=== PATIENT | female | born 1960 | race Caucasian/White ===

== ENCOUNTER → 2016-11-13 | Day surgery (SDC) | payer OTHER ==
[~2016-11-13] VITALS: Ht 172.7 cm; Wt 104.3 kg
[~2016-11-13] MED LIST: ALBUTEROL0.09 MG/A2 IH; AMITRIPTYLINE25 MG PO; AUGMENTIN 875 M1 TAB PO; BAYER ASPIRIN C81 MG PO; CLARITIN10 MG PO; EFFEXOR XR75 M2 PO; EFFEXOR75 MG PO; FIORICET 325 MG1 TAB PO; Fioricet 325 MG1 TAB PO; INDERAL LA120 MG PO; LEXAPRO10 MG PO; LOMOTIL 0.025 M1 TA1 PO; LOMOTIL 0.025 M1 TAB PO; MELATONIN3 MG PO; MOTRIN 800 MG E4 TAB PO; NORCO 325 MG-7.1 TAB PO; PAXIL10 MG PO; PREDNISONE5 MG PO; PRILOSEC20 M1 PO; PROPRANOLOL HCL10 MG PO; PROTONIX40 MG PO; PROVENTIL0.09 MG/A1 INH; TRAMADOL HCL50 MG PO; TYLENOL W/CODEI1 TA4 PO; ZANTAC 150150 MG PO
--- NOTE | ~2016-11-13 | CON ---
[place], [place] REPORT OF CONSULTATION NAME: [id number] UNIT #: [id number] ROOM: DOCTOR: VELASQUEZ ALVAREZ MD BIRTHDATE: [birth year] DOS: 11/13/2016 PROCEDURES: 1. Esophagogastroduodenoscopy and biopsy. 2. Colonoscopy and biopsy. INDICATIONS: Abdominal pain and chronic diarrhea. An informed consent was obtained from the patient after indication of procedures, the alternatives and potential complications were explained to her. PROCEDURE MEDICATIONS: Sedation was administered by Anesthesiology Department. Scope used for upper endoscopy was Olympus diagnostic adult upper endoscope GIF-180, that insertion was to descending duodenum. With the colonoscopy, the scope used was Olympus pediatric colonoscope variable stiffness GIF-180, that insertion was to the cecum, which was identified by the usual landmarks, the appendiceal orifice, ileocecal valve and triangular fold, in addition to transillumination in the right lower quadrant. FINDINGS: After adequate sedation, the patient was placed in left lateral decubitus position. Upper endoscopy was performed first. The scope was introduced under direct visualization through the upper esophageal sphincter into the esophagus. Esophageal mucosa appeared normal with no ulcerations or strictures. Lower esophageal sphincter was identified at 38 cm from incisors. Stomach was then intubated. Gastric mucosa inspected. Severe gastritis was seen. No discrete ulcers or active bleeding. A MILLICENT test was performed from gastric antrum and body. On retroflexed views of the fundus, no hiatal hernia was seen. Pylorus was intubated easily. The duodenal bulb and descending duodenum were within normal range. Scope was then withdrawn after the stomach was decompressed. We then proceeded with the colonoscopy. Rectal examination showed diminished sphincter tone and no external hemorrhoids. Scope was introduced into the rectum, then advanced to the cecum with slight difficulty to looping the left colon. The prep was adequate. Colon mucosa appeared normal with no evidence of polyps, diverticular ulcerations. Retroflexed views in the rectum showed small internal hemorrhoids. Random biopsies were obtained from the right and left colon to rule out microscopic colitis. The scope was then withdrawn after the rectum was decompressed. The patient tolerated the procedures well. ASSESSMENT: 1. Severe gastritis, MILLICENT test performed. 2. Normal colon mucosa with no polyp seen, random biopsies obtained. 3. Small internal hemorrhoids. PLAN: We will review the histopathology and MILLICENT test results and treat the patient accordingly. Repeat screening colonoscopy advised in 10 years. Office followup will be scheduled in 2-3 weeks. [place], [place] REPORT OF CONSULTATION NAME: LANI MOREL UNIT #: [id number] ROOM: DOCTOR: VELASQUEZ ALVAREZ MD BIRTHDATE: [birth year] VELASQUEZ ALVAREZ MD CM:CONSTR:REPORT OF CONSULTATION 0929 11/19/16 1336 SARA ANDRADE [email or web address]
[2016-11-13 08:40] VITALS: BP 121/88
[2016-11-13 09:25] VITALS: BP 115/57
[2016-11-13 09:40] VITALS: BP 116/63
[2016-11-13 09:55] VITALS: BP 122/70
== END | disposition home or self-care (01) ==
LOC: SDC 11-11 09:30
DX: K52.9 Noninfective gastroenteritis and colitis, unspecified (principal); K64.8 Other hemorrhoids; K29.70 Gastritis, unspecified, without bleeding; F32.9 Major depressive disorder, single episode, unspecified; I10 Essential (primary) hypertension; K21.9 Gastro-esophageal reflux disease without esophagitis; J45.909 Unspecified asthma, uncomplicated; J44.9 Chronic obstructive pulmonary disease, unspecified; F41.9 Anxiety disorder, unspecified; M81.0 Age-related osteoporosis without current pathological fracture; I71.9 Aortic aneurysm of unspecified site, without rupture; I47.1 Supraventricular tachycardia; F17.210 Nicotine dependence, cigarettes, uncomplicated; Z83.3 Family history of diabetes mellitus; Z82.49 Family history of ischemic heart disease and other diseases of the circulatory system

== ENCOUNTER 2017-03-02 15:54 | Emergency (ER) | payer OTHER, MEDICAID ==
[~2017-03-02] VITALS: Wt 104.3 kg
[2017-03-02 16:04] VITALS: BP 128/64
[2017-03-02] MEDS ORDERED: ROBAXIN500 M1 PO (17:44)
[2017-03-02] MEDS ORDERED: ANAPROX DS550 MG PO (17:44)
== END 2017-03-02 17:53 | disposition home or self-care (01) ==
LOC: ED 15:54
DX: S16.1XXA Strain of muscle, fascia and tendon at neck level, initial encounter (principal); S20.212A Contusion of left front wall of thorax, initial encounter; M17.12 Unilateral primary osteoarthritis, left knee; F17.200 Nicotine dependence, unspecified, uncomplicated; Z91.013 Allergy to seafood; Z79.899 Other long term (current) drug therapy; V43.52XA Car driver injured in collision with other type car in traffic accident, initial encounter; Y93.89 Activity, other specified; Y92.413 State road as the place of occurrence of the external cause; Y99.8 Other external cause status

== ENCOUNTER 2020-01-01 16:19 | Inpatient (IN) | payer MEDICAID ==
[2020-01-01] VITALS (8 sets, daily range): BP systolic 90–113; BP diastolic 45–79
[~2020-01-01] VITALS: Ht 172.7 cm; Wt 104.6 kg
[~2020-01-01 16:19] MED LIST changes: +ADV 100/50 INH; +ANAPROX DS550 MG PO; +BUPRENORPHIN-NALOXON; +DOXYCYCLINE100 M3 PO; +Ipratropium Brom3 ML INH; +PREDNISONE10 MG PO; +ROBAXIN500 M1 PO
[2020-01-01 17:15] LABS: BASO # 0.1 10*3/uL (0.0-0.1); BASO % 0.7 % (0.0-1.0); EOS # 0.5 10*3/uL (0.0-0.4); EOS % 3.9 % (1.0-4.0); HEMATOCRIT 38.5 % (37.0-47.0); HEMOGLOBIN 12.9 g/dl (12.0-16.0); LYMPH # 3.7 10*3/uL (1.3-4.4); LYMPH % 31.9 % (27.0-41.0); MEAN CORPUSCULAR HGB 30.5 pg (27.0-31.0); MEAN CORPUSCULAR HGB CONC 33.5 g/dl (33.0-37.0); MEAN PLATELET VOLUME 9.1 fl (9.6-12.3); MONO # 0.8 10*3/uL (0.1-1.0); MONO % 6.7 % (3.0-9.0); NEUT # 6.6 10*3/uL (2.3-7.9); NEUT % 56.5 % (47.0-73.0); PLATELET COUNT AUTOMATED 314 10*3/uL (130-400); RED BLOOD COUNT 4.23 10*6/uL (4.10-5.10); RED CELL DISTRI WIDTH 13.5 % (0-14.5); WHITE BLOOD COUNT 11.7 10*3/uL (4.8-10.8)
[2020-01-01 17:31] LABS: ACT PARTIAL THROMBO TIME 27.8 SECONDS (20.0-32.1); BUN 14 mg/dl (7-24); CHLORIDE 105 mmol/L (98-107); CREATININE 0.99 mg/dL (0.55-1.02); INTERNATIONAL NORM RATIO 0.9 (2.0-3.5); POTASSIUM 3.5 mmol/L (3.5-5.1); SGOT/AST 13 IU/L (3-35); SGPT/ALT 20 U/L (12-78); SODIUM 136 mmol/L (136-145); TOTAL PROTEIN 6.9 gm/dL (6.4-8.2)
[2020-01-01 17:34] LABS: ALKALINE PHOSPHATASE 118 U/L (45-117); TROPONIN I < 0.015 ng/ml (<0.045)
--- NOTE | 2020-01-01 20:40 | NUR ---
A 59, admitted to 4E, under the services of PHILOMENA Rodriguez DO with a diagnosis of LEFT SIDED CHEST PAIN /LEFT UPPER QUADRANT PAIN. Chief complaint is CHEST PAIN. Patient arrived via stretcher from ER. Monitor applied. Initial assessment completed. Vital signs taken and recorded. PHILOMENA RODRIGUEZ DO notified of admission to the unit. Orders received. See assessment for past medical history, medications and allergies. Patient and/or family oriented to unit. visitation policy reviewed. Clothing/patient valuable form completed. ALICIA MIRZA A
--- NOTE | 2020-01-01 23:08 | NUR ---
PO NORCO ADMINISTERED FOR C/O L SIDED CHEST PAIN RATED 5/10. WILL MONITOR EFFECTIVENESS.
[2020-01-02] VITALS: BP 124/54
[2020-01-02] MEDS ORDERED: ATORVASTATIN CA20 M1 PO (00:01)
[2020-01-02] MEDS ORDERED: VITAMIN D31250 MC1 PO (00:02)
[2020-01-02] MEDS ORDERED: IBU800 M1 PO (00:03)
--- NOTE | 2020-01-02 00:20 | NUR ---
PRN NORCO APPEARS EFFECTIVE, PATIENT IS SLEEPING WITH EASY AND REGULAR RESPERS ON ROOM AIR. CALL LIGHT IS WITHIN REACH.
--- NOTE | 2020-01-02 03:42 | NUR ---
24 HR. CHECK COMPLETE.
[2020-01-02 06:28] LABS: BASO # 0.1 10*3/uL (0.0-0.1); BASO % 0.6 % (0.0-1.0); EOS # 0.5 10*3/uL (0.0-0.4); EOS % 5.6 % (1.0-4.0); HEMATOCRIT 37.6 % (37.0-47.0); HEMOGLOBIN 12.1 g/dl (12.0-16.0); LYMPH # 3.6 10*3/uL (1.3-4.4); LYMPH % 40.6 % (27.0-41.0); MEAN CELL VOLUME 92.6 fl (81.0-99.0); MEAN CORPUSCULAR HGB 29.8 pg (27.0-31.0); MEAN CORPUSCULAR HGB CONC 32.2 g/dl (33.0-37.0); MEAN PLATELET VOLUME 9.3 fl (9.6-12.3); MONO # 0.7 10*3/uL (0.1-1.0); MONO % 7.9 % (3.0-9.0); NEUT % 45.2 % (47.0-73.0); PLATELET COUNT AUTOMATED 297 10*3/uL (130-400); RED BLOOD COUNT 4.06 10*6/uL (4.10-5.10); WHITE BLOOD COUNT 8.9 10*3/uL (4.8-10.8)
[2020-01-02 06:37] LABS: BUN 12 mg/dl (7-24); CHLORIDE 110 mmol/L (98-107); CHOLESTEROL 165 mg/dL (<200); CREATININE 0.74 mg/dL (0.55-1.02); HDL CHOLESTEROL 41 mg/dl (40-60); LDL CHOLESTEROL 97 mg/dL (9-159); PHOSPHOROUS 4.6 mg/dL (2.5-4.9); POTASSIUM 4.1 mmol/L (3.5-5.1); SODIUM 143 mmol/L (136-145); TRIGLYCERIDES 133 mg/dl (<150); VLDL CHOLESTEROL 27 mg/dL (6-40)
[2020-01-02 08:00] VITALS: BP 101/41
--- NOTE | 2020-01-02 09:00 | NUR ---
Law Clerk in to talk to patient. Patient states lives at home with alone. There are no steps in the home. Physician: jair Pharmacy: [facility] health services: none Patient's level of ADLs: INDEPENDENT Patient has working utilities: all working DME: none Follow-up physician's appointment after d/c: will be made by hospitalist nruse director upon discharge Does patient want to access PORTAL?: no Discharge plan discussed with patient she states she lives at home alone, she is independent in adls and ambulation, she will return home when medically stable and denies any home needs, case management will follow. HOMERO SESAY
--- NOTE | 2020-01-02 11:17 | NUR ---
NOTIFIED OF CONSULT, NNO
[2020-01-02 12:00] VITALS: BP 100/74
[2020-01-02 16:00] VITALS: BP 109/56
[2020-01-02 20:00] VITALS: BP 101/60
--- NOTE | 2020-01-02 20:33 | NUR ---
PATIENT REFUSED 2200 LIPITIOR STATING "I CANT TAKE THOSE, THEY MAKE ME FEEL LIKE I AM NOT IN MY OWN BODY." MEDICATION WASTED.
--- NOTE | 2020-01-02 22:21 | NUR ---
PT MEDICATED W/650MG TYLENOL PO FOR C/O H/A RADIATING DOWN POSTERIOR NECK 03/03. WILL MONITOR FOR EFFECTIVENESS.
--- NOTE | 2020-01-02 23:08 | NUR ---
PATIENT REFUSED NITOBID STATING "I BELIEVE THAT IS WHAT IS CAUSING MY HEADACHE." CALL LIGHT IS WITHIN REACH.
--- NOTE | 2020-01-02 23:58 | NUR ---
PATIENT SLEEPING WITH EASY AND REGULAR RESPERS ON ROOM AIR. CALL LIGHT IS WITHIN REACH.
[2020-01-03] VITALS: BP 108/62
--- NOTE | 2020-01-03 01:09 | NUR ---
PATIENT IS SLEEPING WITH EASY AND REGULAR RESPERS ON ROOM AIR. CALL LIGHT IS WITHIN REACH.
--- NOTE | 2020-01-03 01:53 | NUR ---
PATIENT SLEEPING WITH EASY AND REGULAR RESPERS ON ROOM AIR. CALL LIGHT IS WITHIN REACH.
--- NOTE | 2020-01-03 03:00 | NUR ---
PATIENT IS SLEEPING WITH EASY AND REGULAR RESPERS ON ROOM AIR. CALL LIGHT IS WITHIN REACH.
[2020-01-03 08:00] VITALS: BP 100/42
--- NOTE | 2020-01-03 08:28 | NUR ---
NOTIFIED OF LOW BP 100/42 AND HR 54
--- NOTE | 2020-01-03 09:00 | NUR ---
case management visits with patient, she will return home when medically stable and denies any home needs, case management will follow
--- NOTE | 2020-01-03 10:32 | NUR ---
IN TO SEE PATIENT, NEW ORDER FOR CAROTID U/S TODAY AND OUTPATIENT STRESS TEST NEXT Wednesday01/09/20
--- NOTE | 2020-01-03 12:28 | NUR ---
Discharge instructions reviewed with patient/family. Patient receptive and verbalizes understanding. Follow-up care arranged. Written instructions given to patient/family. ROSAURA MITCHELL
== END 2020-01-03 12:28 | disposition home or self-care (01) | DRG 392 ==
LOC: ED 16:19 → EDHOLD 19:16 → 4E 19:16
PROVIDERS: Emergency Medicine; Student in an Organized Health Care Education/Training Program; ADMIT Family Medicine
DX: K21.9 Gastro-esophageal reflux disease without esophagitis (principal); E44.0 Moderate protein-calorie malnutrition; R10.12 Left upper quadrant pain; R73.9 Hyperglycemia, unspecified; I10 Essential (primary) hypertension; F41.9 Anxiety disorder, unspecified; E66.9 Obesity, unspecified; Z68.35 Body mass index [BMI] 35.0-35.9, adult; J45.909 Unspecified asthma, uncomplicated; I71.2 Thoracic aortic aneurysm, without rupture; Z71.6 Tobacco abuse counseling; F17.210 Nicotine dependence, cigarettes, uncomplicated; R91.1 Solitary pulmonary nodule; M19.90 Unspecified osteoarthritis, unspecified site; F32.9 Major depressive disorder, single episode, unspecified; J44.9 Chronic obstructive pulmonary disease, unspecified; Z82.49 Family history of ischemic heart disease and other diseases of the circulatory system; Z91.041 Radiographic dye allergy status; Z91.013 Allergy to seafood

== ENCOUNTER 2021-02-16 16:03 | Inpatient (IN) | payer OTHER ==
[~2021-02-16] VITALS: Ht 172.7 cm; Wt 104.1 kg
[~2021-02-16 16:03] MED LIST changes: +ATORVASTATIN CA20 M1 PO; -BUPRENORPHIN-NALOXON; +BUPRENORPHIN-NALOXON PO; +IBU800 M1 PO; +VITAMIN D31250 MC1 PO
[2021-02-16 16:07] VITALS: BP 102/65
[2021-02-16 17:09] LABS: BASO % 0.5 % (0.0-1.0); HEMATOCRIT 43.4 % (37.0-47.0); LYMPH # 1.4 10*3/uL (1.3-4.4); LYMPH % 18.4 % (27.0-41.0); MEAN CELL VOLUME 87.9 fl (81.0-99.0); MEAN CORPUSCULAR HGB 28.5 pg (27.0-31.0); MEAN CORPUSCULAR HGB CONC 32.5 g/dl (33.0-37.0); MEAN PLATELET VOLUME 9.1 fl (9.6-12.3); MONO # 0.8 10*3/uL (0.1-1.0); NEUT # 5.4 10*3/uL (2.3-7.9); NEUT % 70.7 % (47.0-73.0); PLATELET COUNT AUTOMATED 216 10*3/uL (130-400); RED BLOOD COUNT 4.94 10*6/uL (4.10-5.10); RED CELL DISTRI WIDTH 14.6 % (0-14.5); WHITE BLOOD COUNT 7.6 10*3/uL (4.8-10.8)
[2021-02-16 17:20] LABS: ACT PARTIAL THROMBO TIME 31.3 SECONDS (20.0-32.1)
[2021-02-16 17:25] LABS: ALBUMIN 2.9 gm/dl (3.1-4.5); ALKALINE PHOSPHATASE 93 U/L (45-117); BUN 11 mg/dl (7-24); CHLORIDE 104 mmol/L (98-107); CREATININE 0.75 mg/dL (0.55-1.02); LIPASE 64 U/L (73-393); POTASSIUM 4.1 mmol/L (3.5-5.1); SGOT/AST 25 IU/L (3-35); SGPT/ALT 23 U/L (12-78); SODIUM 138 mmol/L (136-145)
[2021-02-16 17:26] LABS: TROPONIN I < 0.015 ng/ml (<0.045)
[2021-02-16 19:06] VITALS: BP 176/92
[2021-02-16 19:59] VITALS: BP 122/41
[2021-02-16 23:40] VITALS: BP 109/47
[2021-02-17] MEDS ORDERED: MELATONIN5 M6 PO (00:19)
[2021-02-17] MEDS ORDERED: SINGULAIR5 MG PO (00:22)
[2021-02-17] MEDS ORDERED: SYMB160 INH (00:22)
[2021-02-17] MEDS ORDERED: Ipratropium Brom3 ML INH (00:23)
[2021-02-17 06:35] LABS: HEMATOCRIT 42.7 % (37.0-47.0); MEAN CELL VOLUME 87.5 fl (81.0-99.0); MEAN CORPUSCULAR HGB 28.7 pg (27.0-31.0); MEAN CORPUSCULAR HGB CONC 32.8 g/dl (33.0-37.0); MEAN PLATELET VOLUME 9.4 fl (9.6-12.3); PLATELET COUNT AUTOMATED 230 10*3/uL (130-400); RED BLOOD COUNT 4.88 10*6/uL (4.10-5.10); RED CELL DISTRI WIDTH 14.3 % (0-14.5); WHITE BLOOD COUNT 4.4 10*3/uL (4.8-10.8)
[2021-02-17 06:51] LABS: BUN 14 mg/dl (7-24); CHLORIDE 109 mmol/L (98-107); CREATININE 0.71 mg/dL (0.55-1.02); POTASSIUM 4.4 mmol/L (3.5-5.1); SODIUM 140 mmol/L (136-145)
[2021-02-17 07:04] LABS: ATYPICAL LYMPHS 2 % (0-0); BASOPHILS 1 % (0-1); PLATELET SUFFICIENCY NORMAL (NORMAL); TOTAL CELLS COUNTED 100 #CELLS
[2021-02-17 08:00] VITALS: BP 136/70
[2021-02-17 12:00] VITALS: BP 121/51
[2021-02-17 16:00] VITALS: BP 122/65
[2021-02-17 16:53] LABS: BILIRUBIN Negative (Negative); BLOOD Negative (Negative); CLARITY Clear (Clear); COLOR Yellow (Yellow); GLUCOSE Negative (Negative); KETONE 1+ (Negative); LEUKO ESTERASE Negative (Negative); NITRITE Negative (Negative); PH 6.5 (4.5-8.0); SPECIFIC GRAVITY 1.015 (1.001-1.030); UROBILINOGEN 0.2 E.U./dl (0.0-1.0)
[2021-02-17 17:05] LABS: BACTERIA TRACE; EPITHELIAL CELLS 0-2; FINE GRANULAR CAST 0-2; RBC 0-2 rbc/hpf (0-2); WBC 0-2 wbc/hpf (0-5)
[2021-02-17 20:00] VITALS: BP 125/46
[2021-02-18] VITALS: BP 109/61
[2021-02-18 06:01] LABS: BUN 15 mg/dl (7-24); CHLORIDE 107 mmol/L (98-107); CREATININE 0.69 mg/dL (0.55-1.02); LDH 251 U/L (84-246); SODIUM 139 mmol/L (136-145)
[2021-02-18 06:14] LABS: BASO % 0.1 % (0.0-1.0); HEMATOCRIT 39.9 % (37.0-47.0); LYMPH # 1.5 10*3/uL (1.3-4.4); LYMPH % 12.2 % (27.0-41.0); MEAN CELL VOLUME 86.4 fl (81.0-99.0); MEAN CORPUSCULAR HGB 28.6 pg (27.0-31.0); MEAN CORPUSCULAR HGB CONC 33.1 g/dl (33.0-37.0); MONO # 0.8 10*3/uL (0.1-1.0); MONO % 6.6 % (3.0-9.0); NEUT # 9.7 10*3/uL (2.3-7.9); NEUT % 80.6 % (47.0-73.0); PLATELET COUNT AUTOMATED 265 10*3/uL (130-400); RED BLOOD COUNT 4.62 10*6/uL (4.10-5.10); RED CELL DISTRI WIDTH 14.4 % (0-14.5)
[2021-02-18 08:00] VITALS: BP 132/66
[2021-02-18 12:00] VITALS: BP 118/59
[2021-02-18] MEDS ORDERED: PREDNISONE10 MG PO (15:16)
== END 2021-02-18 16:00 | disposition home or self-care (01) | DRG 177 ==
LOC: ED 16:03 → 4E 20:20 → EDHOLD 20:20 → 4E 20:20 → EDHOLD 20:20 → 4E 20:59
PROVIDERS: Hospitalist; Internal Medicine; Physician Assistant; ADMIT Emergency Medicine; ATTEND Emergency Medicine
DX: U07.1 COVID-19 (principal); J12.82 Pneumonia due to coronavirus disease 2019; E44.0 Moderate protein-calorie malnutrition; J44.9 Chronic obstructive pulmonary disease, unspecified; J45.909 Unspecified asthma, uncomplicated; I71.9 Aortic aneurysm of unspecified site, without rupture; Z68.34 Body mass index [BMI] 34.0-34.9, adult; I10 Essential (primary) hypertension; F41.9 Anxiety disorder, unspecified; F32.9 Major depressive disorder, single episode, unspecified; K21.9 Gastro-esophageal reflux disease without esophagitis; F17.200 Nicotine dependence, unspecified, uncomplicated; E87.8 Other disorders of electrolyte and fluid balance, not elsewhere classified; R73.9 Hyperglycemia, unspecified; Z91.041 Radiographic dye allergy status; I25.2 Old myocardial infarction; Z91.013 Allergy to seafood; Z90.49 Acquired absence of other specified parts of digestive tract; Z90.710 Acquired absence of both cervix and uterus; Z82.49 Family history of ischemic heart disease and other diseases of the circulatory system; Z79.51 Long term (current) use of inhaled steroids

== ENCOUNTER 2024-05-29 20:41 | Emergency (ER) | payer OTHER ==
[~2024-05-29] VITALS: Ht 167.6 cm; Wt 104.5 kg
[~2024-05-29 20:41] MED LIST changes: +ANORO ELLIPTA1 EACH INH; +FLOVENT DISKU100 MCG INTRADERM; +MELATONIN5 M6 PO; +OMEPRAZOLE MAGN20 MG PO; +PREVACID15 M2 PO; +SINGULAIR5 MG PO; +SYMB160 INH; +ZINC GLUCONATE50 MG PO
[2024-05-29 20:46] VITALS: BP 148/71
[2024-05-29 21:13] LABS: BASO % 0.2 % (0.0-1.0); EOS # 0.2 10*3/uL (0.0-0.4); EOS % 0.9 % (1.0-4.0); HEMATOCRIT 48.4 % (37.0-47.0); LYMPH # 1.3 10*3/uL (1.3-4.4); MEAN CELL VOLUME 90.1 fl (81.0-99.0); MEAN CORPUSCULAR HGB 29.8 pg (27.0-31.0); MEAN CORPUSCULAR HGB CONC 33.1 g/dl (33.0-37.0); MEAN PLATELET VOLUME 8.9 fl (9.6-12.3); MONO # 0.9 10*3/uL (0.1-1.0); MONO % 5.4 % (3.0-9.0); NEUT # 13.8 10*3/uL (2.3-7.9); NEUT % 85.1 % (47.0-73.0); PLATELET COUNT AUTOMATED 316 10*3/uL (130-400); RED BLOOD COUNT 5.37 10*6/uL (4.10-5.10); RED CELL DISTRI WIDTH 13.7 % (0-14.5); WHITE BLOOD COUNT 16.2 10*3/uL (4.8-10.8)
[2024-05-29 21:34] LABS: ALKALINE PHOSPHATASE 144 U/L (46-116); CHLORIDE 104 mmol/L (98-107); LIPASE 31 U/L (12-53); POTASSIUM 4.1 mmol/L (3.4-5.1); SGPT/ALT 16 U/L (5-49); TOTAL PROTEIN 7.5 gm/dL (6.0-8.0)
[2024-05-29 21:37] LABS: BUN < 5 mg/dl (9-23)
[2024-05-29] MEDS ORDERED: Ondansetron Hydrochloride 4 MG/2 ML VIAL IV ONE (21:45)
[2024-05-29 21:50] LABS: BILIRUBIN Negative (Negative); BLOOD Negative (Negative); CLARITY Cloudy (Clear); COLOR Dark Yellow (Yellow); GLUCOSE Negative (Negative); KETONE 1+ (Negative); LEUKO ESTERASE Negative (Negative); NITRITE Negative (Negative); PH 5.5 (4.5-8.0); SPECIFIC GRAVITY >= 1.030 (1.001-1.030)
[2024-05-29 21:59] LABS: BACTERIA 2+; MUCOUS 2+
[2024-05-30] MEDS ORDERED: Ketorolac Tromethamine 15 MG/ML VIAL IV ONE (00:30)
[2024-05-30] MEDS ORDERED: SODIUM CHLORIDE 0.9% 1,000 ML IV ONE (00:30)
== END 2024-05-30 00:48 | disposition home or self-care (01) ==
LOC: ED 20:41
PROVIDERS: Internal Medicine
DX: K52.9 Noninfective gastroenteritis and colitis, unspecified (principal); R11.2 Nausea with vomiting, unspecified; E87.1 Hypo-osmolality and hyponatremia; D72.829 Elevated white blood cell count, unspecified; F32.A Depression, unspecified; K21.9 Gastro-esophageal reflux disease without esophagitis; F41.9 Anxiety disorder, unspecified; M19.90 Unspecified osteoarthritis, unspecified site; J45.909 Unspecified asthma, uncomplicated; F17.200 Nicotine dependence, unspecified, uncomplicated; Z91.041 Radiographic dye allergy status; Z91.013 Allergy to seafood; Z88.2 Allergy status to sulfonamides; Z88.8 Allergy status to other drugs, medicaments and biological substances; Z90.49 Acquired absence of other specified parts of digestive tract; Z90.710 Acquired absence of both cervix and uterus; Z90.89 Acquired absence of other organs; Z98.890 Other specified postprocedural states; Z96.651 Presence of right artificial knee joint; Z95.5 Presence of coronary angioplasty implant and graft

== ENCOUNTER 2025-02-25 19:36 | Emergency (ER) | payer OTHER ==
[~2025-02-25] VITALS: Ht 172.7 cm; Wt 90.7 kg
[2025-02-25 19:41] VITALS: BP 134/61
[2025-02-25 20:04] LABS: BASO # 0.1 10*3/uL (0.0-0.1); BASO % 0.9 % (0.0-1.0); EOS # 0.3 10*3/uL (0.0-0.4); EOS % 2.9 % (1.0-4.0); MEAN CELL VOLUME 91.5 fl (81.0-99.0); MEAN CORPUSCULAR HGB 30.2 pg (27.0-31.0); MEAN PLATELET VOLUME 9.1 fl (9.6-12.3); MONO # 0.6 10*3/uL (0.1-1.0); MONO % 5.5 % (3.0-9.0); NEUT # 5.8 10*3/uL (2.3-7.9); NEUT % 51.3 % (47.0-73.0); PLATELET COUNT AUTOMATED 333 10*3/uL (130-400); RED BLOOD COUNT 4.37 10*6/uL (4.10-5.10); RED CELL DISTRI WIDTH 15.2 % (0-14.5); WHITE BLOOD COUNT 11.3 10*3/uL (4.8-10.8)
[2025-02-25] MEDS ORDERED: HYDROmorphONE Hydrochloride 0.5 MG/0.5 ML SYRINGE IV ONE (20:45)
[2025-02-25 21:58] LABS: BILIRUBIN Negative (Negative); BLOOD Negative (Negative); CLARITY Clear (Clear); COLOR Yellow (Yellow); GLUCOSE Negative (Negative); KETONE Negative (Negative); LEUKO ESTERASE Negative (Negative); NITRITE Negative (Negative); PH 6.5 (4.5-8.0); SPECIFIC GRAVITY <= 1.005 (1.001-1.030); UROBILINOGEN 0.2 E.U./dl (0.0-1.0)
[2025-02-25 22:16] LABS: ALKALINE PHOSPHATASE 77 U/L (46-116); BUN 11 mg/dl (9-23); CHLORIDE 105 mmol/L (98-107); LIPASE 30 U/L (12-53); TOTAL PROTEIN 6.9 gm/dL (6.0-8.0)
[2025-02-25 22:17] LABS: SGPT/ALT < 7 U/L (5-49)
[2025-02-25 22:24] LABS: WBC 0-2 wbc/hpf (0-5)
[2025-02-26] MEDS ORDERED: Ondansetron Hydrochloride 4 MG/2 ML VIAL IV ONE (00:50)
== END 2025-02-26 00:33 | disposition home or self-care (01) ==
LOC: ED 19:36
PROVIDERS: Emergency Medicine
DX: K59.00 Constipation, unspecified (principal); R10.12 Left upper quadrant pain; J45.909 Unspecified asthma, uncomplicated; J21.9 Acute bronchiolitis, unspecified; K21.9 Gastro-esophageal reflux disease without esophagitis; M19.90 Unspecified osteoarthritis, unspecified site; F41.9 Anxiety disorder, unspecified; F32.A Depression, unspecified; I25.2 Old myocardial infarction; I10 Essential (primary) hypertension; F17.210 Nicotine dependence, cigarettes, uncomplicated; Z91.041 Radiographic dye allergy status; Z91.013 Allergy to seafood; Z88.2 Allergy status to sulfonamides; Z79.899 Other long term (current) drug therapy; Z90.49 Acquired absence of other specified parts of digestive tract; Z90.710 Acquired absence of both cervix and uterus; Z90.89 Acquired absence of other organs; Z96.611 Presence of right artificial shoulder joint; Z96.651 Presence of right artificial knee joint

== ENCOUNTER 2025-07-12 17:33 | Inpatient (IN) | payer OTHER ==
[~2025-07-12] VITALS: Ht 172.7 cm; Wt 90.7 kg
[2025-07-12 17:38] VITALS: BP 133/97
[2025-07-12] MEDS ORDERED: CIPROFLOXACIN500 M4 PO (17:44)
[2025-07-12] MEDS ORDERED: Ondansetron4 MG PO (17:44)
[2025-07-12] MEDS ORDERED: VENT7GM INH (17:45)
[2025-07-12 18:18] LABS: BASO # 0.1 10*3/uL (0.0-0.1); BASO % 0.7 % (0.0-1.0); EOS # 0.0 10*3/uL (0.0-0.4); EOS % 0.5 % (1.0-4.0); MEAN CELL VOLUME 89.3 fl (81.0-99.0); MEAN CORPUSCULAR HGB 30.1 pg (27.0-31.0); MEAN PLATELET VOLUME 9.2 fl (9.6-12.3); MONO # 0.5 10*3/uL (0.1-1.0); MONO % 5.2 % (3.0-9.0); NEUT # 5.8 10*3/uL (2.3-7.9); NEUT % 67.0 % (47.0-73.0); NUCLEATED RED BLOOD CELL 0.0 % (0.0-0.0); NUCLEATED RED BLOOD CELL 0.0 10*3/uL (0.0-0.0); PLATELET COUNT AUTOMATED 320 10*3/uL (130-400); RED CELL DISTRI WIDTH 13.2 % (0-14.5)
[2025-07-12] MEDS ORDERED: Ondansetron Hydrochloride 4 MG/2 ML VIAL IV ONE (18:25)
[2025-07-12] MEDS ORDERED: SODIUM CHLORIDE 0.9% 1,000 ML IV ONE ×2 (18:25→20:55)
[2025-07-12 18:37] LABS: BUN 9 mg/dl (9-23); SGPT/ALT 12 U/L (5-49)
[2025-07-12 19:46] LABS: BILIRUBIN 2+ (Negative); BLOOD Negative (Negative); CLARITY Clear (Clear); COLOR Orange (Yellow); KETONE 4+ (Negative); LEUKO ESTERASE 2+ (Negative); NITRITE Positive (Negative); PH 5.0 (4.5-8.0); SPECIFIC GRAVITY 1.020 (1.001-1.030); UROBILINOGEN 1.0 E.U./dl (0.0-1.0)
[2025-07-12 19:52] LABS: BACTERIA 1+; EPITHELIAL CELLS 16-20; FINE GRANULAR CAST 0-2; MUCOUS TRACE; RBC 0-2 rbc/hpf (0-2)
[2025-07-12] MEDS ORDERED: Promethazine Hydrochloride 25 MG/ML VIAL IV ONE (20:50)
[2025-07-12] MEDS ORDERED: CIPROFLOXACIN 200 ML IV ONE (20:50)
[2025-07-12] MEDS ORDERED: TEMAZEPAM 15 MG CAP PO PRN (21:20)
[2025-07-12] MEDS ORDERED: BISACODYL 5 MG TAB PO PRN (21:20)
[2025-07-12] MEDS ORDERED: Acetaminophen/Hydrocodone 5 MG/325 MG TABLET PO PRN (21:20)
[2025-07-12] MEDS ORDERED: Ondansetron Hydrochloride 4 MG/2 ML VIAL IV PRN (21:20)
[2025-07-12] MEDS ORDERED: ACETAMINOPHEN 650 MG SUPP R PRN (21:20)
[2025-07-12] MEDS ORDERED: ACETAMINOPHEN 325 MG TAB PO PRN (21:20)
[2025-07-12] MEDS ORDERED: BISACODYL 10 MG SUPP R PRN (21:20)
[2025-07-12] MEDS ORDERED: LORazepam 0.5 MG TAB PO ONE (21:30)
[2025-07-13] VITALS: BP 132/74
[2025-07-13 07:05] LABS: BASO # 0.1 10*3/uL (0.0-0.1); BASO % 0.8 % (0.0-1.0); EOS # 0.2 10*3/uL (0.0-0.4); EOS % 2.0 % (1.0-4.0); MEAN CELL VOLUME 91.3 fl (81.0-99.0); MEAN CORPUSCULAR HGB 30.1 pg (27.0-31.0); MEAN PLATELET VOLUME 9.1 fl (9.6-12.3); MONO # 0.7 10*3/uL (0.1-1.0); MONO % 8.1 % (3.0-9.0); NEUT # 4.1 10*3/uL (2.3-7.9); NEUT % 48.6 % (47.0-73.0); NUCLEATED RED BLOOD CELL 0.0 % (0.0-0.0); NUCLEATED RED BLOOD CELL 0.0 10*3/uL (0.0-0.0); PLATELET COUNT AUTOMATED 258 10*3/uL (130-400); RED CELL DISTRI WIDTH 13.6 % (0-14.5)
[2025-07-13 07:33] LABS: BUN 7 mg/dl (9-23); FREE T4 1.24 ng/dl (0.89-1.76); LDL CHOLESTEROL 105 mg/dL (9-159)
[2025-07-13 08:00] VITALS: BP 129/45
[2025-07-13] MEDS ORDERED: ESCITALOPRAM OXALATE 20 MG TAB PO SCH (10:00)
[2025-07-13] MEDS ORDERED: ANORO ELIPTA INH SCH (10:00)
[2025-07-13] MEDS ORDERED: Propranolol Hydrochloride 10 MG TAB PO SCH (10:00)
[2025-07-13 12:00] VITALS: BP 133/50
[2025-07-13] MEDS ORDERED: MG-AL HYDROXIDE/SIMETICONE 30 ML UDC PO STA (15:59)
[2025-07-13] MEDS ORDERED: Dicyclomine Hydrochloride 20 MG/10 ML OSYR PO STA (15:59)
[2025-07-13 16:00] VITALS: BP 124/50
[2025-07-13 20:00] VITALS: BP 110/54
[2025-07-14] VITALS: BP 122/53
[2025-07-14 06:11] LABS: BASO # 0.1 10*3/uL (0.0-0.1); BASO % 1.1 % (0.0-1.0); EOS # 0.3 10*3/uL (0.0-0.4); EOS % 3.1 % (1.0-4.0); MEAN CELL VOLUME 91.4 fl (81.0-99.0); MEAN CORPUSCULAR HGB 30.1 pg (27.0-31.0); MEAN PLATELET VOLUME 9.9 fl (9.6-12.3); MONO # 0.6 10*3/uL (0.1-1.0); MONO % 7.6 % (3.0-9.0); NEUT # 3.4 10*3/uL (2.3-7.9); NEUT % 41.4 % (47.0-73.0); NUCLEATED RED BLOOD CELL 0.0 % (0.0-0.0); NUCLEATED RED BLOOD CELL 0.0 10*3/uL (0.0-0.0); PLATELET COUNT AUTOMATED 253 10*3/uL (130-400); RED CELL DISTRI WIDTH 14.0 % (0-14.5)
[2025-07-14 06:16] LABS: BUN 7 mg/dl (9-23)
[2025-07-14 08:00] VITALS: BP 114/51
[2025-07-14] MEDS ORDERED: Promethazine Hydrochloride 25 MG TAB PO PRN (09:25)
[2025-07-14 12:00] VITALS: BP 104/58
[2025-07-14] MEDS ORDERED: Promethazine Hydrochloride 25 MG/ML VIAL IV PRN (15:50)
[2025-07-14] MEDS ORDERED: diphenhydrAMINE hydrochloride 50 MG/ML VIAL IV PRN (15:55)
[2025-07-14 16:00] VITALS: BP 100/57
[2025-07-14 20:00] VITALS: BP 128/53
[2025-07-15] VITALS: BP 131/55
[2025-07-15 06:10] LABS: BASO # 0.1 10*3/uL (0.0-0.1); BASO % 0.7 % (0.0-1.0); EOS # 0.4 10*3/uL (0.0-0.4); EOS % 4.3 % (1.0-4.0); MEAN CELL VOLUME 91.9 fl (81.0-99.0); MEAN CORPUSCULAR HGB 29.8 pg (27.0-31.0); MEAN PLATELET VOLUME 9.5 fl (9.6-12.3); MONO # 0.8 10*3/uL (0.1-1.0); MONO % 7.7 % (3.0-9.0); NEUT # 4.9 10*3/uL (2.3-7.9); NEUT % 49.5 % (47.0-73.0); NUCLEATED RED BLOOD CELL 0.0 % (0.0-0.0); NUCLEATED RED BLOOD CELL 0.0 10*3/uL (0.0-0.0); PLATELET COUNT AUTOMATED 255 10*3/uL (130-400); RED CELL DISTRI WIDTH 14.0 % (0-14.5)
[2025-07-15 06:27] LABS: BUN 5 mg/dl (9-23)
[2025-07-15 06:51] VITALS: BP 112/59
[2025-07-15] MEDS ORDERED: SODIUM CHLORIDE 0.9% 1,000 ML IV ONE (07:00)
[2025-07-15 08:00] VITALS: BP 114/45
[2025-07-15] MEDS ORDERED: ERGOCALCIFEROL 50,000 IU CAP (1.25 MG) PO SCH (10:00)
[2025-07-15 12:00] VITALS: BP 118/96
[2025-07-15 16:00] VITALS: BP 135/71
[2025-07-15] MEDS ORDERED: predniSONE 20 MG TAB PO ONE (17:15)
[2025-07-15 20:00] VITALS: BP 137/71
[2025-07-16] VITALS: BP 115/55
[2025-07-16] MEDS ORDERED: predniSONE 20 MG TAB PO SCH (01:00)
[2025-07-16] MEDS ORDERED: predniSONE 20 MG TAB PO ONE (06:00)
[2025-07-16] MEDS ORDERED: diphenhydrAMINE hydrochloride 25 MG CAP PO SCH (06:00)
[2025-07-16] MEDS ORDERED: IOHEXOL 300 MG/ML 100 ML VIAL IV ONE (06:15)
[2025-07-16 06:32] LABS: BASO # 0.0 10*3/uL (0.0-0.1); BASO % 0.2 % (0.0-1.0); EOS # 0.0 10*3/uL (0.0-0.4); EOS % 0.1 % (1.0-4.0); MEAN CELL VOLUME 90.6 fl (81.0-99.0); MEAN CORPUSCULAR HGB 29.7 pg (27.0-31.0); MEAN PLATELET VOLUME 9.7 fl (9.6-12.3); MONO # 0.2 10*3/uL (0.1-1.0); MONO % 1.8 % (3.0-9.0); NEUT # 8.8 10*3/uL (2.3-7.9); NEUT % 85.7 % (47.0-73.0); NUCLEATED RED BLOOD CELL 0.0 % (0.0-0.0); NUCLEATED RED BLOOD CELL 0.0 10*3/uL (0.0-0.0); PLATELET COUNT AUTOMATED 250 10*3/uL (130-400); RED CELL DISTRI WIDTH 13.8 % (0-14.5)
[2025-07-16] MEDS ORDERED: Iodixanol 320 100 ML VIAL IV ONE (06:40)
[2025-07-16 06:47] LABS: BUN 8 mg/dl (9-23)
[2025-07-16] MEDS ORDERED: Iodixanol 320 100 ML VIAL ONE (07:05)
[2025-07-16 08:00] VITALS: BP 152/63
[2025-07-16] MEDS ORDERED: SODIUM CHLORIDE 0.9% 1,000 ML IV ONE (09:50)
[2025-07-16 12:00] VITALS: BP 100/50
[2025-07-16 16:00] VITALS: BP 110/42
[2025-07-16 20:00] VITALS: BP 133/68
[2025-07-17] VITALS: BP 131/46
[2025-07-17 07:16] LABS: BASO # 0.1 10*3/uL (0.0-0.1); BASO % 0.3 % (0.0-1.0); EOS # 0.1 10*3/uL (0.0-0.4); EOS % 0.4 % (1.0-4.0); MEAN CELL VOLUME 91.8 fl (81.0-99.0); MEAN CORPUSCULAR HGB 30.2 pg (27.0-31.0); MEAN PLATELET VOLUME 9.4 fl (9.6-12.3); MONO # 0.9 10*3/uL (0.1-1.0); MONO % 5.2 % (3.0-9.0); NEUT # 11.4 10*3/uL (2.3-7.9); NEUT % 68.2 % (47.0-73.0); NUCLEATED RED BLOOD CELL 0.0 % (0.0-0.0); NUCLEATED RED BLOOD CELL 0.0 10*3/uL (0.0-0.0); PLATELET COUNT AUTOMATED 262 10*3/uL (130-400); RED CELL DISTRI WIDTH 14.3 % (0-14.5)
[2025-07-17 07:23] LABS: BUN 11 mg/dl (9-23)
[2025-07-17 08:00] VITALS: BP 132/55
[2025-07-17 12:00] VITALS: BP 108/53
[2025-07-17 16:00] VITALS: BP 113/49
[2025-07-17 20:00] VITALS: BP 100/36
[2025-07-18] VITALS: BP 118/42
[2025-07-18 06:25] LABS: BASO # 0.1 10*3/uL (0.0-0.1); BASO % 0.8 % (0.0-1.0); EOS # 0.2 10*3/uL (0.0-0.4); EOS % 2.6 % (1.0-4.0); MEAN CELL VOLUME 92.1 fl (81.0-99.0); MEAN CORPUSCULAR HGB 30.1 pg (27.0-31.0); MEAN PLATELET VOLUME 9.5 fl (9.6-12.3); MONO # 0.7 10*3/uL (0.1-1.0); MONO % 8.4 % (3.0-9.0); NEUT # 4.2 10*3/uL (2.3-7.9); NEUT % 47.9 % (47.0-73.0); NUCLEATED RED BLOOD CELL 0.0 % (0.0-0.0); NUCLEATED RED BLOOD CELL 0.0 10*3/uL (0.0-0.0); PLATELET COUNT AUTOMATED 253 10*3/uL (130-400); RED CELL DISTRI WIDTH 14.6 % (0-14.5)
[2025-07-18 06:40] LABS: BUN 14 mg/dl (9-23)
[2025-07-18 08:00] VITALS: BP 103/52
[2025-07-18] MEDS ORDERED: Pantoprazole Sodium 20 MG TAB PO SCH (08:30)
[2025-07-18 11:57] VITALS: BP 96/51
[2025-07-18] MEDS ORDERED: Dicyclomine Hydrochloride 10 MG CAP PO SCH (12:00)
[2025-07-18 16:00] VITALS: BP 117/59
[2025-07-18 20:00] VITALS: BP 147/56
[2025-07-19] VITALS (10 sets, daily range): BP systolic 103–127; BP diastolic 44–82
[2025-07-19 07:10] LABS: BASO # 0.1 10*3/uL (0.0-0.1); BASO % 0.8 % (0.0-1.0); EOS # 0.4 10*3/uL (0.0-0.4); EOS % 4.7 % (1.0-4.0); MEAN CELL VOLUME 92.0 fl (81.0-99.0); MEAN CORPUSCULAR HGB 29.6 pg (27.0-31.0); MEAN PLATELET VOLUME 9.7 fl (9.6-12.3); MONO # 0.6 10*3/uL (0.1-1.0); MONO % 6.8 % (3.0-9.0); NEUT # 5.2 10*3/uL (2.3-7.9); NEUT % 60.0 % (47.0-73.0); NUCLEATED RED BLOOD CELL 0.0 % (0.0-0.0); NUCLEATED RED BLOOD CELL 0.0 10*3/uL (0.0-0.0); PLATELET COUNT AUTOMATED 275 10*3/uL (130-400); RED CELL DISTRI WIDTH 14.3 % (0-14.5)
[2025-07-19] MEDS ORDERED: Lactated Ringer's Solution 500 ML IV ONE (07:25)
[2025-07-19 07:51] LABS: BUN 13 mg/dl (9-23)
[2025-07-19] MEDS ORDERED: Lidocaine Hydrochloride 5 ML VIAL IV ONE (13:03)
[2025-07-19] MEDS ORDERED: PROPOFOL 200 MG/20 ML VIAL IV ONE (13:03)
[2025-07-19] MEDS ORDERED: LORazepam 0.5 MG TAB PO PRN (19:05)
[2025-07-20] VITALS: BP 117/60
[2025-07-20 06:25] LABS: BASO # 0.1 10*3/uL (0.0-0.1); BASO % 0.6 % (0.0-1.0); EOS # 0.4 10*3/uL (0.0-0.4); EOS % 4.0 % (1.0-4.0); MEAN CELL VOLUME 92.0 fl (81.0-99.0); MEAN CORPUSCULAR HGB 30.2 pg (27.0-31.0); MEAN PLATELET VOLUME 9.5 fl (9.6-12.3); MONO # 0.7 10*3/uL (0.1-1.0); MONO % 7.0 % (3.0-9.0); NEUT # 5.1 10*3/uL (2.3-7.9); NEUT % 50.5 % (47.0-73.0); NUCLEATED RED BLOOD CELL 0.0 % (0.0-0.0); NUCLEATED RED BLOOD CELL 0.0 10*3/uL (0.0-0.0); PLATELET COUNT AUTOMATED 275 10*3/uL (130-400); RED CELL DISTRI WIDTH 14.1 % (0-14.5)
[2025-07-20 06:45] LABS: BUN 11 mg/dl (9-23)
[2025-07-20 08:00] VITALS: BP 103/54
[2025-07-20 12:00] VITALS: BP 134/62
[2025-07-20 16:00] VITALS: BP 102/51
[2025-07-20 20:00] VITALS: BP 137/54
[2025-07-21] VITALS: BP 115/61
[2025-07-21 06:29] LABS: BASO # 0.1 10*3/uL (0.0-0.1); BASO % 0.7 % (0.0-1.0); EOS # 0.3 10*3/uL (0.0-0.4); EOS % 2.8 % (1.0-4.0); MEAN CELL VOLUME 92.4 fl (81.0-99.0); MEAN CORPUSCULAR HGB 30.0 pg (27.0-31.0); MEAN PLATELET VOLUME 9.6 fl (9.6-12.3); MONO # 0.8 10*3/uL (0.1-1.0); MONO % 8.2 % (3.0-9.0); NEUT # 4.3 10*3/uL (2.3-7.9); NEUT % 44.7 % (47.0-73.0); NUCLEATED RED BLOOD CELL 0.0 % (0.0-0.0); NUCLEATED RED BLOOD CELL 0.0 10*3/uL (0.0-0.0); PLATELET COUNT AUTOMATED 259 10*3/uL (130-400); RED CELL DISTRI WIDTH 14.1 % (0-14.5)
[2025-07-21 06:47] LABS: BUN 11 mg/dl (9-23)
[2025-07-21 08:00] VITALS: BP 101/46
[2025-07-21 08:59] LABS: BILIRUBIN Negative (Negative); BLOOD Negative (Negative); CLARITY Clear (Clear); COLOR Yellow (Yellow); KETONE Negative (Negative); LEUKO ESTERASE Negative (Negative); NITRITE Negative (Negative); PH 6.5 (4.5-8.0); SPECIFIC GRAVITY 1.015 (1.001-1.030); UROBILINOGEN 1.0 E.U./dl (0.0-1.0)
[2025-07-21 09:23] LABS: RBC 0-2 rbc/hpf (0-2); WBC 0-2 wbc/hpf (0-5)
[2025-07-21 09:24] LABS: BACTERIA 1+; MUCOUS TRACE
[2025-07-21 12:00] VITALS: BP 130/97
[2025-07-21] MEDS ORDERED: ATIVAN0.5 MG PO (12:05)
[2025-07-21] MEDS ORDERED: Ondansetron4 MG PO (12:05)
== END 2025-07-21 12:57 | disposition home or self-care (01) | DRG 690 ==
LOC: ED 17:33 → EDHOLD 20:57 → 5E 20:57
PROVIDERS: Internal Medicine; Nurse Practitioner Family; Student in an Organized Health Care Education/Training Program; ADMIT Internal Medicine; ATTEND Internal Medicine
PROC: 0DB78ZX Excision of Stomach, Pylorus, Via Natural or Artificial Opening Endoscopic, Diagnostic (ICD-10-PCS; principal; 2025-07-19)
DX: N30.00 Acute cystitis without hematuria (principal); F41.9 Anxiety disorder, unspecified; E55.9 Vitamin D deficiency, unspecified; J45.909 Unspecified asthma, uncomplicated; M17.12 Unilateral primary osteoarthritis, left knee; F17.210 Nicotine dependence, cigarettes, uncomplicated; F32.9 Major depressive disorder, single episode, unspecified; K21.9 Gastro-esophageal reflux disease without esophagitis; J44.9 Chronic obstructive pulmonary disease, unspecified; Z88.2 Allergy status to sulfonamides; Z88.8 Allergy status to other drugs, medicaments and biological substances; Z91.041 Radiographic dye allergy status; Z91.013 Allergy to seafood; Z90.49 Acquired absence of other specified parts of digestive tract; Z90.710 Acquired absence of both cervix and uterus; Z82.49 Family history of ischemic heart disease and other diseases of the circulatory system; I25.2 Old myocardial infarction; Z71.6 Tobacco abuse counseling

== ENCOUNTER 2025-07-24 18:09 | Emergency (ER) | payer OTHER ==
[~2025-07-24] VITALS: Wt 90.7 kg
[~2025-07-24 18:09] MED LIST changes: +ATIVAN0.5 MG PO; +CIPROFLOXACIN500 M4 PO; +Ondansetron4 MG PO; +VENT7GM INH
[2025-07-24] MEDS ORDERED: LORazepam 1 MG TAB PO ONE (18:40)
[2025-07-24 18:44] LABS: BASO # 0.1 10*3/uL (0.0-0.1); BASO % 0.5 % (0.0-1.0); EOS # 0.2 10*3/uL (0.0-0.4); EOS % 1.6 % (1.0-4.0); MEAN CELL VOLUME 89.4 fl (81.0-99.0); MEAN CORPUSCULAR HGB 30.2 pg (27.0-31.0); MEAN PLATELET VOLUME 9.0 fl (9.6-12.3); MONO # 0.8 10*3/uL (0.1-1.0); MONO % 6.9 % (3.0-9.0); NEUT # 6.9 10*3/uL (2.3-7.9); NEUT % 62.3 % (47.0-73.0); NUCLEATED RED BLOOD CELL 0.0 % (0.0-0.0); NUCLEATED RED BLOOD CELL 0.0 10*3/uL (0.0-0.0); PLATELET COUNT AUTOMATED 333 10*3/uL (130-400); RED CELL DISTRI WIDTH 13.5 % (0-14.5)
[2025-07-24] MEDS ORDERED: Ondansetron Hydrochloride 4 MG TAB SL ONE (18:55)
[2025-07-24 19:03] LABS: BUN 6 mg/dl (9-23)
[2025-07-24 20:04] VITALS: BP 129/65
[2025-07-24] MEDS ORDERED: Ondansetron Hydrochloride 4 MG TAB PO ONE (21:05)
== END 2025-07-24 20:56 | disposition home or self-care (01) ==
LOC: ED 18:09
PROVIDERS: Nurse Practitioner Family
DX: T45.2X1A Poisoning by vitamins, accidental (unintentional), initial encounter (principal); F41.9 Anxiety disorder, unspecified; R07.89 Other chest pain; I25.2 Old myocardial infarction; F17.210 Nicotine dependence, cigarettes, uncomplicated; Z91.041 Radiographic dye allergy status; Z91.013 Allergy to seafood; Z88.2 Allergy status to sulfonamides; Z79.899 Other long term (current) drug therapy; Z90.49 Acquired absence of other specified parts of digestive tract; Z90.710 Acquired absence of both cervix and uterus; Z96.651 Presence of right artificial knee joint; Z96.611 Presence of right artificial shoulder joint; Y92.89 Other specified places as the place of occurrence of the external cause

== ENCOUNTER 2025-08-14 15:50 | Inpatient (IN) | payer OTHER ==
[~2025-08-14] VITALS: Ht 172.7 cm; Wt 89.9 kg
[2025-08-14 15:56] VITALS: BP 111/59
[2025-08-14] MEDS ORDERED: HYDROmorphONE Hydrochloride 0.5 MG/0.5 ML SYRINGE IV ONE (16:10)
[2025-08-14] MEDS ORDERED: SODIUM CHLORIDE 0.9% 1,000 ML IV ONE (16:10)
[2025-08-14] MEDS ORDERED: Ondansetron Hydrochloride 4 MG/2 ML VIAL IV ONE (16:10)
[2025-08-14 16:56] LABS: BASO # 0.0 10*3/uL (0.0-0.1); BASO % 0.5 % (0.0-1.0); EOS # 0.1 10*3/uL (0.0-0.4); EOS % 0.8 % (1.0-4.0); MEAN CELL VOLUME 90.1 fl (81.0-99.0); MEAN CORPUSCULAR HGB 30.0 pg (27.0-31.0); MEAN PLATELET VOLUME 8.9 fl (9.6-12.3); MONO # 0.4 10*3/uL (0.1-1.0); MONO % 5.7 % (3.0-9.0); NEUT # 4.3 10*3/uL (2.3-7.9); NEUT % 55.7 % (47.0-73.0); NUCLEATED RED BLOOD CELL 0.0 % (0.0-0.0); NUCLEATED RED BLOOD CELL 0.0 10*3/uL (0.0-0.0); PLATELET COUNT AUTOMATED 294 10*3/uL (130-400); RED CELL DISTRI WIDTH 14.0 % (0-14.5)
[2025-08-14 17:13] LABS: BUN 7 mg/dl (9-23); SGPT/ALT 9 U/L (5-49)
[2025-08-14 18:50] LABS: BILIRUBIN Negative (Negative); BLOOD Negative (Negative); CLARITY Clear (Clear); COLOR Yellow (Yellow); KETONE 1+ (Negative); LEUKO ESTERASE Trace (Negative); NITRITE Negative (Negative); PH 7.5 (4.5-8.0); SPECIFIC GRAVITY 1.015 (1.001-1.030); UROBILINOGEN 2.0 E.U./dl (0.0-1.0)
[2025-08-14 19:10] LABS: BACTERIA 1+
[2025-08-14] MEDS ORDERED: Phenergan25 MG PO (20:12)
[2025-08-14 22:18] VITALS: BP 118/72
[2025-08-14] MEDS ORDERED: Acetaminophen/Hydrocodone 5 MG/325 MG TABLET PO PRN (22:30)
[2025-08-14] MEDS ORDERED: BISACODYL 5 MG TAB PO PRN (22:30)
[2025-08-14] MEDS ORDERED: ACETAMINOPHEN 650 MG SUPP R PRN (22:30)
[2025-08-14] MEDS ORDERED: ACETAMINOPHEN 325 MG TAB PO PRN (22:30)
[2025-08-14] MEDS ORDERED: BISACODYL 10 MG SUPP R PRN (22:30)
[2025-08-14] MEDS ORDERED: Ondansetron Hydrochloride 4 MG/2 ML VIAL IV PRN (22:30)
[2025-08-14 22:50] VITALS: BP 132/48
[2025-08-15] MEDS ORDERED: LORazepam 0.5 MG TAB PO PRN (00:30)
[2025-08-15] MEDS ORDERED: Promethazine Hydrochloride 25 MG TAB PO PRN ×2 (00:35→20:17)
[2025-08-15] MEDS ORDERED: SODIUM CHLORIDE 0.9% 1,000 ML IV SCH (04:30)
[2025-08-15 06:16] LABS: ACT PARTIAL THROMBO TIME 27.3 SECONDS (20.0-32.1)
[2025-08-15 06:17] LABS: BUN 8 mg/dl (9-23); SGPT/ALT 8 U/L (5-49)
[2025-08-15 06:22] LABS: BASO # 0.1 10*3/uL (0.0-0.1); BASO % 0.8 % (0.0-1.0); EOS # 0.1 10*3/uL (0.0-0.4); EOS % 1.8 % (1.0-4.0); MEAN CELL VOLUME 91.6 fl (81.0-99.0); MEAN CORPUSCULAR HGB 29.7 pg (27.0-31.0); MEAN PLATELET VOLUME 9.4 fl (9.6-12.3); MONO # 0.5 10*3/uL (0.1-1.0); MONO % 6.3 % (3.0-9.0); NEUT # 2.8 10*3/uL (2.3-7.9); NEUT % 36.4 % (47.0-73.0); NUCLEATED RED BLOOD CELL 0.0 % (0.0-0.0); NUCLEATED RED BLOOD CELL 0.0 10*3/uL (0.0-0.0); PLATELET COUNT AUTOMATED 245 10*3/uL (130-400); RED CELL DISTRI WIDTH 14.0 % (0-14.5)
[2025-08-15 06:55] LABS: VITAMIN D, 25-HYDROXY 137.5 ng/mL (30-100)
[2025-08-15 08:00] VITALS: BP 133/60
[2025-08-15] MEDS ORDERED: ESCITALOPRAM OXALATE 10 MG TAB PO SCH (10:00)
[2025-08-15] MEDS ORDERED: ANORO ELLIPTA 62.5 MCG INH SCH (10:00)
[2025-08-15] MEDS ORDERED: Propranolol Hydrochloride 10 MG TAB PO SCH (10:00)
[2025-08-15 12:00] VITALS: BP 143/64
[2025-08-15 16:00] VITALS: BP 114/45
[2025-08-15 20:00] VITALS: BP 110/52
[2025-08-16 06:07] LABS: BUN 6 mg/dl (9-23)
[2025-08-16 06:47] LABS: BASO # 0.1 10*3/uL (0.0-0.1); BASO % 0.8 % (0.0-1.0); EOS # 0.2 10*3/uL (0.0-0.4); EOS % 2.4 % (1.0-4.0); MEAN CELL VOLUME 90.6 fl (81.0-99.0); MEAN CORPUSCULAR HGB 30.3 pg (27.0-31.0); MEAN PLATELET VOLUME 8.9 fl (9.6-12.3); MONO # 0.4 10*3/uL (0.1-1.0); MONO % 6.6 % (3.0-9.0); NEUT # 2.8 10*3/uL (2.3-7.9); NEUT % 42.9 % (47.0-73.0); NUCLEATED RED BLOOD CELL 0.0 % (0.0-0.0); NUCLEATED RED BLOOD CELL 0.0 10*3/uL (0.0-0.0); PLATELET COUNT AUTOMATED 230 10*3/uL (130-400); RED CELL DISTRI WIDTH 14.0 % (0-14.5)
[2025-08-16] MEDS ORDERED: Albuterol Sulf/Ipratropium 3 ML VIAL NEB SCH (07:30)
[2025-08-16 08:00] VITALS: BP 125/52
[2025-08-16] MEDS ORDERED: FOAM BANDAGE 1 EACH BANDAGE T ONE (08:56)
[2025-08-16 11:52] VITALS: BP 115/58
[2025-08-16 16:00] VITALS: BP 118/58; BP 97/40
[2025-08-16] MEDS ORDERED: busPIRone Hydrochloride 5 MG TAB PO SCH (19:10)
[2025-08-16 20:00] VITALS: BP 107/54
[2025-08-17] VITALS: BP 110/40
[2025-08-17 08:00] VITALS: BP 114/43
[2025-08-17 10:04] LABS: BASO # 0.1 10*3/uL (0.0-0.1); BASO % 0.8 % (0.0-1.0); EOS # 0.1 10*3/uL (0.0-0.4); EOS % 1.5 % (1.0-4.0); MEAN CELL VOLUME 92.1 fl (81.0-99.0); MEAN CORPUSCULAR HGB 30.2 pg (27.0-31.0); MEAN PLATELET VOLUME 8.8 fl (9.6-12.3); MONO # 0.4 10*3/uL (0.1-1.0); MONO % 5.9 % (3.0-9.0); NEUT # 4.6 10*3/uL (2.3-7.9); NEUT % 62.4 % (47.0-73.0); NUCLEATED RED BLOOD CELL 0.0 % (0.0-0.0); NUCLEATED RED BLOOD CELL 0.0 10*3/uL (0.0-0.0); PLATELET COUNT AUTOMATED 244 10*3/uL (130-400); RED CELL DISTRI WIDTH 14.0 % (0-14.5)
[2025-08-17 10:32] LABS: BUN 5 mg/dl (9-23)
[2025-08-17 12:00] VITALS: BP 128/61
[2025-08-17 14:01] LABS: BILIRUBIN Negative (Negative); BLOOD Negative (Negative); CLARITY Clear (Clear); COLOR Yellow (Yellow); KETONE Negative (Negative); LEUKO ESTERASE Negative (Negative); NITRITE Negative (Negative); PH 6.5 (4.5-8.0); SPECIFIC GRAVITY <= 1.005 (1.001-1.030); UROBILINOGEN 0.2 E.U./dl (0.0-1.0)
[2025-08-17 14:21] LABS: MUCOUS TRACE; RBC 0-2 rbc/hpf (0-2); WBC 0-2 wbc/hpf (0-5)
[2025-08-17 16:00] VITALS: BP 118/49
[2025-08-17 20:00] VITALS: BP 99/63
[2025-08-18] VITALS: BP 138/56
[2025-08-18] MEDS ORDERED: FOAM BANDAGE 1 EACH BANDAGE T ONE (07:07)
[2025-08-18 08:00] VITALS: BP 121/57
[2025-08-18] MEDS ORDERED: Albuterol Sulf/Ipratropium 3 ML VIAL NEB ONE (08:45)
[2025-08-18 12:00] VITALS: BP 117/64
[2025-08-18] MEDS ORDERED: IBU800 M2 PO (12:26)
[2025-08-18] MEDS ORDERED: DULCOLAX10 M1 R (12:26)
[2025-08-18] MEDS ORDERED: HYDROXYZINE PAM25 M1 PO (12:26)
[2025-08-18] MEDS ORDERED: BUSPAR5 MG PO (12:26)
== END 2025-08-18 14:09 | disposition home or self-care (01) | DRG 389 ==
LOC: ED 15:50 → EDHOLD 21:28 → 5E 21:28
PROVIDERS: Internal Medicine; Nurse Practitioner Family; Student in an Organized Health Care Education/Training Program; ADMIT Internal Medicine; ATTEND Internal Medicine
DX: K56.0 Paralytic ileus (principal); E87.29 Other acidosis; J44.1 Chronic obstructive pulmonary disease with (acute) exacerbation; Z78.9 Other specified health status; L89.151 Pressure ulcer of sacral region, stage 1; K21.9 Gastro-esophageal reflux disease without esophagitis; E88.89 Other specified metabolic disorders; T73.0XXA Starvation, initial encounter; I10 Essential (primary) hypertension; F41.9 Anxiety disorder, unspecified; F32.A Depression, unspecified; J45.909 Unspecified asthma, uncomplicated; E66.811 Obesity, class 1; F17.210 Nicotine dependence, cigarettes, uncomplicated; Z96.651 Presence of right artificial knee joint; T45.2X5A Adverse effect of vitamins, initial encounter; Z88.2 Allergy status to sulfonamides; Z88.8 Allergy status to other drugs, medicaments and biological substances; Z91.041 Radiographic dye allergy status; Z91.013 Allergy to seafood; Z90.49 Acquired absence of other specified parts of digestive tract; Z90.710 Acquired absence of both cervix and uterus; Z82.49 Family history of ischemic heart disease and other diseases of the circulatory system; Z83.3 Family history of diabetes mellitus; Z83.6 Family history of other diseases of the respiratory system; Z79.899 Other long term (current) drug therapy; Y92.89 Other specified places as the place of occurrence of the external cause

== ENCOUNTER 2025-09-04 17:58 | Emergency (ER) | payer OTHER ==
[~2025-09-04] VITALS: Wt 89.8 kg
[~2025-09-04 17:58] MED LIST changes: +BUSPAR5 MG PO; +CIPRO500 MG PO; +DULCOLAX10 M1 R; +FENOFIBRATE145 M1 PO; +HYDROXYZINE PAM25 M1 PO; +IBU800 M2 PO; +METRONIDAZOLE500 M1 PO; +Phenergan25 MG PO
[2025-09-04 18:09] VITALS: BP 109/68
[2025-09-04] MEDS ORDERED: SODIUM CHLORIDE 0.9% 1,000 ML IV ONE (18:30)
[2025-09-04] MEDS ORDERED: Promethazine Hydrochloride 25 MG/ML VIAL IV ONE (18:30)
[2025-09-04 18:43] LABS: BASO # 0.1 10*3/uL (0.0-0.1); BASO % 0.7 % (0.0-1.0); EOS # 0.1 10*3/uL (0.0-0.4); EOS % 0.6 % (1.0-4.0); MEAN CELL VOLUME 88.2 fl (81.0-99.0); MEAN CORPUSCULAR HGB 30.3 pg (27.0-31.0); MEAN PLATELET VOLUME 8.8 fl (9.6-12.3); MONO # 0.5 10*3/uL (0.1-1.0); MONO % 5.6 % (3.0-9.0); NEUT # 5.7 10*3/uL (2.3-7.9); NEUT % 63.0 % (47.0-73.0); NUCLEATED RED BLOOD CELL 0.0 % (0.0-0.0); NUCLEATED RED BLOOD CELL 0.0 10*3/uL (0.0-0.0); PLATELET COUNT AUTOMATED 258 10*3/uL (130-400); RED CELL DISTRI WIDTH 14.7 % (0-14.5)
[2025-09-04 18:59] LABS: BUN 5 mg/dl (9-23)
[2025-09-04 19:00] LABS: SGPT/ALT < 7 U/L (5-49)
[2025-09-04] MEDS ORDERED: MG-AL HYDROXIDE/SIMETICONE 30 ML UDC PO STA (19:18)
[2025-09-04] MEDS ORDERED: Dicyclomine Hydrochloride 20 MG/10 ML OSYR PO STA (19:18)
[2025-09-04] MEDS ORDERED: Ciprofloxacin Hydrochloride 500 MG TAB PO ONE (21:05)
[2025-09-04 21:20] LABS: BILIRUBIN Negative (Negative); BLOOD Negative (Negative); CLARITY Clear (Clear); COLOR Yellow (Yellow); KETONE Negative (Negative); LEUKO ESTERASE Negative (Negative); NITRITE Negative (Negative); PH 7.5 (4.5-8.0); SPECIFIC GRAVITY <= 1.005 (1.001-1.030); UROBILINOGEN 0.2 E.U./dl (0.0-1.0)
[2025-09-04 21:40] LABS: BACTERIA 1+
[2025-09-04 21:41] LABS: WBC 0-2 wbc/hpf (0-5)
[2025-09-04] MEDS ORDERED: PROTONIX40 MG PO (22:12)
[2025-09-04] MEDS ORDERED: Acetaminophen/Hydrocodone 5 MG/325 MG TABLET PO ONE (22:30)
== END 2025-09-04 22:45 | disposition home or self-care (01) ==
LOC: ED 17:58
PROVIDERS: Nurse Practitioner Family
DX: R10.84 Generalized abdominal pain (principal); K21.9 Gastro-esophageal reflux disease without esophagitis; R11.10 Vomiting, unspecified; F32.A Depression, unspecified; F17.210 Nicotine dependence, cigarettes, uncomplicated; Z98.890 Other specified postprocedural states; Z90.710 Acquired absence of both cervix and uterus; Z90.89 Acquired absence of other organs; Z88.1 Allergy status to other antibiotic agents; Z88.8 Allergy status to other drugs, medicaments and biological substances; Z91.013 Allergy to seafood; F41.9 Anxiety disorder, unspecified; M19.90 Unspecified osteoarthritis, unspecified site; J45.909 Unspecified asthma, uncomplicated